=== PATIENT | male | born 1965 | race Caucasian/White ===

== ENCOUNTER 2023-01-07 08:53 | Emergency (ER) | payer MEDICAID ==
[~2023-01-07] VITALS: Ht 188 cm; Wt 79.5 kg
[~2023-01-07 08:53] MED LIST: CEPH-571 PO; HYDR-4383 PO
[2023-01-07 08:59] VITALS: BP 154/99
--- NOTE | 2023-01-07 10:18 | NUR ---
Wound on the left lower leg/ankle was cleansed with normal saline, pat dry with gauze. Dry gauze applied on the wound then wrapped with rolled bandage.
== END 2023-01-07 11:25 | disposition home or self-care (01) ==
LOC: ER 08:54
DX: S80.922A Unspecified superficial injury of left lower leg, initial encounter (principal); M79.605 Pain in left leg; Z87.891 Personal history of nicotine dependence; Z56.0 Unemployment, unspecified; X58.XXXA Exposure to other specified factors, initial encounter; Y93.89 Activity, other specified; Y92.89 Other specified places as the place of occurrence of the external cause; Y99.8 Other external cause status
CPT/HCPCS: 99284; L4360; A6449

== ENCOUNTER 2023-01-16 11:26 | Emergency (ER) | payer MEDICAID ==
[~2023-01-16] VITALS: Ht 185.4 cm; Wt 79.5 kg
[2023-01-16 11:36] VITALS: BP 136/104
[2023-01-16] MEDS ORDERED: LORA-269 PO (14:37)
[2023-01-16] MEDS ORDERED: SULF1TAB45 PO (14:37)
[2023-02-09] MEDS ORDERED: LEVO750T68 PO (15:26)
[2023-02-10] MEDS ORDERED: HYDR-3972 PO (16:12)
[2023-02-10] MEDS ORDERED: LINE600T11 PO (16:12)
== END 2023-01-16 15:07 | disposition home or self-care (01) ==
LOC: ER 11:26
DX: S90.912A Unspecified superficial injury of left ankle, initial encounter (principal); Z56.0 Unemployment, unspecified; X58.XXXA Exposure to other specified factors, initial encounter; Y93.89 Activity, other specified; Y92.89 Other specified places as the place of occurrence of the external cause; Y99.8 Other external cause status
CPT/HCPCS: 99283; A6258; A6449